=== PATIENT | male | born 1955 | race Caucasian/White ===

== ENCOUNTER 2020-11-16 20:10 | Emergency (ER) | payer OTHER, BC, MEDICARE, SELFPAY ==
--- NOTE | ~2020-11-16 | CT_ITS ---
EXAMINATION: CT brain wo con DATE: 11/16/2020 21:41 INDICATION: Head injury. TECHNIQUE: Computed tomography (CT) of the head was performed without intravenous contrast. The mA wa s adjusted according to patient size. Iterative reconstruction technique was employed. The dose-lengt h product was 681.00 mGy-cm. COMPARISON: Head CT 07/09/17 FINDINGS: There are scattered areas of low attenuation in the cerebral white matter. There is no intr acranial hemorrhage, acute infarction, or abnormal intracranial mass lesion. There are old lacunar in farcts in the bilateral basal ganglia. The ventricles are normal in size. The orbits are normal. Ther e is mild mucosal thickening in the paranasal sinuses. The mastoid air cells are normal. IMPRESSION: 1. 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 2. Mild nonspecific cerebral white matter disease, which likely represents chronic small vessel ische derrek disease. Reviewed, dictated and finalized at location A. IMPRESSION: 1. 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 2. Mild nonspecific cerebral white matter disease, which likely represents color drum worker barry small vessel ischemic disease.
[2020-11-16 20:25] VITALS: BP 150/87; PULSE 93; RESP 18; TEMP 36.9; O2SAT 94
--- NOTE | 2020-11-16 21:10 | ED.WOUNDLAC ---
HPI - Wound/Laceration General Chief Complaint: Wound/Laceration Stated Complaint: glf head lac Time Seen by Provider: 11/16/20 21:09 History of Present Illness HPI narrative: Fall forward striking head on table leg. Momentarily dazed, no LOC. he has a moderate frontal headache. He sustained a small laceration and skin tear to the forehead. No blood thinners. No weakness, numbness, confusion. Related Data Home Medications Medication Instructions Recorded Confirmed No Home Medications 11/16/20 Allergies Allergy/AdvReac Type Severity Reaction Status Date / Time No Known Allergies Allergy Verified 11/16/20 20:35 Review of Systems Review of Systems: All systems reviewed & are unremarkable except as noted in HPI and below Constitutional: Constitutional: Denies chills, Denies fever(s) and Denies weakness Eyes: Comments: Mild blurring ENT: Denies dizziness Cardiovascular: Cardiovascular: Denies chest pain Respiratory: Respiratory: Denies dyspnea Gastrointestinal: Gastrointestinal: Denies nausea Musculoskeletal: Musculoskeletal: Denies back pain Neurologic: Denies confusion, Denies dizziness, Denies syncope, Reports headache(s) and Denies weakness [facility] Family History Family History Other Family history of lymphoma Social History Social History Smoking status: Current every day smoker Alcohol intake: never Gender identity (if verbalized by the patient): Male Sexual Orientation (if Verbalized by the Patient): Straight or Heterosexual Exam Const: General: no acute distress and alert Orientation/consciousness: patient oriented x3 HENMT: Other: 1 cm forehead laceration with adjacent 3 cm skin tear. Eyes: Conjunctivae: conjunctivae normal Pupils: Equal, round and reactive pupils present EOM: EOMs intact bilaterally Neck: Neck: normal visual inspection Resp: Effort & Inspection: normal respiratory effort Auscultation: clear to auscultation bilaterally Cardio: Rate: regular rate Rhythm: regular rhythm Back/Spine/Pelvis: Other: No cervical spine tenderness Skin: General skin exam: normal color Neuro: General: patient oriented x3, moves all extremities, no focal motor deficits and CN's II-XI intact bilaterally Cranial nerves: Yes Nystagmus not present Speech: normal speech Gait exam (Neuro): Normal gait present Extrem: General: normal to inspection Course Vital Signs Vital signs: Vital Signs Temperature 36.9 C 11/16/20 20:25 Pulse Rate 93 11/16/20 20:25 Respiratory Rate 18 11/16/20 20:25 Blood Pressure 150/87 H 11/16/20 20:25 Pulse Oximetry 94 11/16/20 20:25 Temperature 36.9 C 11/16/20 20:25 Pulse Rate 88 11/16/20 22:15 Respiratory Rate 18 11/16/20 22:15 Blood Pressure 147/80 H 11/16/20 22:15 Pulse Oximetry 96 11/16/20 22:15 Procedures Laceration Laceration 1: Site: face Size (cm): 1 Description: irregular Depth: simple, single layer Local Anesthetic: none Pre-repair: irrigated ====== Skin Level ====== Skin layer closed with: dermabond ====== Subcutaneous Layer ====== ====== Muscle Layer ====== ====== Tendon Layer ====== MDM - Wound/Laceration Imaging Data Radiologist's impression: ITS Impressions Head CT 11/16/20 21:46 IMPRESSION: 1. 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 2. Mild nonspecific cerebral white matter disease, which likely represents chronic small vessel ischemic disease. Discharge Plan Discharge Clinical Impression: Forehead laceration, Closed head injury Patient Disposition: Home, Self-Care Condition: Stable Instructions: Head Injury (ED), Skin Adhesive Care (ED) Prescriptions: No Action No Home Medications RF: 0 Follow-up/Referrals: Rosalino,MD Randal [Primary
[2020-11-16] MEDS: ACETAMINOPHEN 500 MG TABLET 1000 MG PO (21:47)
[2020-11-16 22:15] VITALS: BP 147/80; PULSE 88; RESP 18; O2SAT 96
== END 2020-11-16 22:15 | disposition home or self-care (01) ==
PROVIDERS: Emergency Provider Emergency Medicine; PCP Family Medicine
DX: S01.81XA Laceration without foreign body of other part of head, initial encounter (principal); F17.210 Nicotine dependence, cigarettes, uncomplicated; W19.XXXA Unspecified fall, initial encounter
CPT/HCPCS: 12011; 70450; 99284; A9270

== ENCOUNTER 2020-12-28 08:56 | Outpatient (CLI) | payer BC, MEDICARE, SELFPAY ==
--- NOTE | ~2020-12-28 | CT_ITS ---
EXAMINATION:CT lung screening DATE: 12/28/2020 09:18 INDICATION: Personal history of tobacco dependence. Current smoker with 50 pack year history. TECHNIQUE: Computed tomography (CT) of the chest was performed without intravenous contrast. Automate d exposure control and iterative reconstruction technique were employed. The dose-length product (DLP ) was 134.83 mGy-cm. COMPARISON: None. FINDINGS: There is mild atelectasis in left upper lobe and left lower lobe. No pleural effusion. Ther e is a 4 mm nodule in left upper lobe. The heart size is normal. There is a large old infarct involvi ng left ventricular apex, septum, and anterior wall. There is left ventricular enlargement of the hea rt. There are coronary artery calcifications. No pericardial effusion. There is mild thoracic spondyl osis. IMPRESSION: 1. Lung-RADS category 2: Benign appearance or behavior. Continue annual screening with noncontrast lo w-dose chest CT in 12 months. Reviewed, dictated and finalized at location B. IMPRESSION: 1. Lung-RADS category 2: Benign appearance or behavior. Continue annual screeni ng with noncontrast low-dose chest CT in 12 months.
== END 2020-12-28 08:57 | disposition home or self-care (01) ==
PROVIDERS: PCP Family Medicine; Visit Provider Family Medicine
DX: Z12.2 Encounter for screening for malignant neoplasm of respiratory organs (principal); Z87.891 Personal history of nicotine dependence
CPT/HCPCS: 71271

== ENCOUNTER 2021-01-02 07:09 | Outpatient (CLI) | payer BC, MEDICARE, SELFPAY ==
--- NOTE | ~2021-01-02 | US_ITS ---
EXAMINATION: US aorta [facility] EXAM DATE: 01/02/2021 07:49 INDICATION: Abdominal aortic aneurysm screening, chronic smoker AAA screening. TECHNIQUE: Multiple grayscale and Doppler images of the abdominal aorta were obtained (by a technolog ist who performed the scan) and subsequently reviewed. There is no prior study for comparison. FINDINGS: Abdominal aorta measures 2.7 cm proximally, 2.6 cm mid aspect, 6.4 cm distally. Recommend vascular co nsult, CT angiogram for better characterization. IMPRESSION: Positive for distal abdominal aortic aneurysm over 6 cm in size; recommend CTA abdomen an d pelvis, vascular consult for possible prophylactic treatment. Reviewed, dictated and finalized at location A. IMPRESSION: Positive for distal abdominal aortic aneurysm over 6 cm in size; re commend CTA abdomen and pelvis, vascular consult for possible prophylactic yvrose tment.
== END 2021-01-02 07:10 | disposition home or self-care (01) ==
PROVIDERS: PCP Family Medicine; Visit Provider Family Medicine
DX: Z13.6 Encounter for screening for cardiovascular disorders (principal); I71.4 Abdominal aortic aneurysm, without rupture
CPT/HCPCS: 76706

== ENCOUNTER 2021-11-09 08:22 | Outpatient (CLI) | payer BC, MEDICARE, SELFPAY ==
[2021-11-09 09:20] LABS: Basophils Absolute Auto 0.1 K/mm3 (0.0-0.1); Basophils Percent Auto 1.6 % (0.2-1.2); Eosinophils Absolute Auto 0.3 K/mm3 (0-0.3); Eosinophils Percent Auto 6.7 % (0-4.4); Hematocrit 40.3 % (42.0-52.0); Hemoglobin 13.7 g/dL (14.0-18.0); Immature Granulocyte Absolute 0.01 K/mm3 (0.00-0.031); Immature Granulocyte Percent A 0.2 % (0-0.5); Lymphocytes Absolute Auto 1.36 K/mm3 (0.9-3.2); Lymphocytes Percent Auto 30.2 % (18.3-44.2); Mean Corpuscular Hemoglobin 33.7 pg (26-34); Mean Platelet Volume 8.4 fl (7.4-10.4); Monocytes Absolute Auto 0.6 K/mm3 (0.1-0.6); Monocytes Percent Auto 12.9 % (2.6-8.5); Neutrophils Absolute Auto 2.2 K/mm3 (1.3-6.7); Neutrophils Percent Auto 48.4 % (45.5-73.1); Platelet Count Result 178 k/mm3 (150-375); Red Blood Count 4.07 M/mm3 (4.6-6.20); Red Cell Distribution Width 13.3 % (11.5-14.5); White Blood Count 4.5 K/mm3 (4.5-10.0)
[2021-11-09 09:22] LABS: Add Urine Microscopic? NO; Appearance Urine Clear (Clear); Bilirubin Urine Negative (Negative); Blood Urine Negative (Negative); Color Urine Straw (Yellow); Glucose Urine UA Negative (Negative); Ketones Urine Negative (Negative); Leukocyte Esterase Ur Negative LEU/UL (Negative); Nitrate Urine Negative (Negative); Protein Urine Negative (Negative); Urobilinogen Urine Negative mg/dL (<2.0)
[2021-11-09 09:27] LABS: Hemoglobin A1C 5.4 % (<5.7)
[2021-11-09 09:28] LABS: Alanine Aminotransferase 32 U/L (4-50); Albumin Level 4.1 g/dL (3.5-5.1); Alkaline Phosphatase 68 U/L (38-126); Anion Gap 6 mmol/L (8-16); Aspartate Amino Transferase 34 U/L (17-59); Bilirubin,Total 0.7 mg/dL (0.2-1.3); Blood Urea Nitrogen 11 mg/dL (9-20); Calcium 8.9 mg/dL (8.4-10.2); Carbon Dioxide 27 mmol/L (22-30); Chloride 102 mmol/L (98-107); Cholesterol 154 mg/dL (0-200); Estimated Glomerular Filt Rate > 60; Glucose 98 mg/dL (65-110); HDL Direct 45 mg/dL; Magnesium 2.1 mg/dL (1.6-2.3); Potassium 4.4 mmol/L (3.4-5.0); Sodium 135 mmol/L (137-145); Triglycerides 151 mg/dL (<150); Uric Acid 7.9 mg/dL (3.5-8.5)
[2021-11-09 09:39] LABS: LDL Cholesterol Direct 78 mg/dL
[2021-11-09 09:58] LABS: Prostate Specific Antigen 0.9 ng/mL (< OR = 4.0)
[2021-11-09 10:05] LABS: Vitamin D 25 Hydroxy 50.1 ng/mL
[2021-11-09 10:34] LABS: Folic Acid 6.9 ng/mL (2.76->20)
[2021-11-09 14:44] LABS: Total Triiodothyronine (T3) 1.16 NG/ML (0.97-1.69)
== END 2021-11-09 08:23 | disposition home or self-care (01) ==
LOC: ANHLAB 08:32
PROVIDERS: PCP Family Medicine; Visit Provider Family Medicine
DX: Z00.00 Encounter for general adult medical examination without abnormal findings (principal); M10.09 Idiopathic gout, multiple sites; E55.9 Vitamin D deficiency, unspecified; E66.3 Overweight; R25.2 Cramp and spasm
CPT/HCPCS: 36415; 80053; 80061; 81003; 82306; 82607; 82746; 83036; 83735; 84153; 84439; 84443; 84480; 84550; 85025; G0103

== ENCOUNTER 2022-02-08 10:07 | Outpatient (CLI) | payer BC, MEDICARE, SELFPAY ==
[2022-02-08 11:20] LABS: Uric Acid 6.3 mg/dL (3.5-8.5)
== END 2022-02-08 10:08 | disposition home or self-care (01) ==
LOC: ANHLAB 10:30
PROVIDERS: PCP Family Medicine; Visit Provider Family Medicine
DX: M10.09 Idiopathic gout, multiple sites (principal)
CPT/HCPCS: 36415; 84550

== ENCOUNTER 2022-02-28 13:50 | Outpatient (CLI) | payer BC, MEDICARE, SELFPAY ==
--- NOTE | ~2022-02-28 | CT_ITS ---
EXAMINATION: CT lung screening DATE: 02/28/2022 14:20 INDICATION: History of nicotine dependence TECHNIQUE: Computed tomography (CT) of the chest was performed without intravenous contrast. The dose -length product was 128.87 mGy-cm. Automated exposure control and iterative reconstruction technique were employed. COMPARISON: CT dated 12/28/2020 FINDINGS: Heart size normal. No significant pleural or pericardial effusion. No thoracic lymphadenopa thy. There is atherosclerosis of the aorta and coronary arteries. The upper abdomen is unremarkable. There is chronic lingular and left lower lobe atelectasis/scarring. There is right middle lobe and ri ght lower lobe airspace disease which most likely represents atelectasis. Pneumonia less favored. The re is a subsolid 5 mm right upper lobe nodule, image 20. No endobronchial lesions. No pneumothorax. T here are nonenlarged mediastinal lymph nodes, likely reactive. IMPRESSION: 1. Lung-RADS category 2: Benign appearance or behavior. Continue annual screening with noncontrast lo w-dose chest CT in 12 months. 2: Patchy bilateral infiltrates predominantly affecting the lower lungs, most likely atelectasis vers us developing pneumonia. Reviewed, dictated and finalized at location A. IMPRESSION: 1. Lung-RADS category 2: Benign appearance or behavior. Continue annual screeni ng with noncontrast low-dose chest CT in 12 months. 2: Patchy bilateral infiltrates predominantly affecting the lower lungs, most l ikely atelectasis versus developing pneumonia.
== END 2022-02-28 13:51 | disposition home or self-care (01) ==
PROVIDERS: PCP Family Medicine; Visit Provider Family Medicine
DX: Z12.2 Encounter for screening for malignant neoplasm of respiratory organs (principal); R91.8 Other nonspecific abnormal finding of lung field; Z87.891 Personal history of nicotine dependence
CPT/HCPCS: 71271